=== PATIENT | male | born 1995 | race Caucasian/White ===

== ENCOUNTER → 2022-05-21 15:43 | Outpatient (CLI) | payer OTHER, SELFPAY ==
--- NOTE | 2022-05-21 15:52 | DI.RAD.S_ITS ---
PROCEDURE: XR HAND RT MIN 3V INDICATIONS: Right hand injury TECHNIQUE: 3 views of the hand(s) acquired. COMPARISON: None. FINDINGS: Bones: No fractures or dislocations. Carpal bones are normally aligned. No suspicious bony lesions. Suspect old healed 5th metacarpal fracture Soft tissues: No suspicious soft tissue calcifications. IMPRESSION: No acute osseous abnormalities. If clinical symptoms persist or clinical suspicion for pathology is high, a repeat examination in 7-10 days, or advanced imaging such as CT or MRI is suggested for further evaluation. Dictated by: Gio Cote M.D. on 05/21/2022 at 17:11 Approved by: Gio Cote M.D. on 05/21/2022 at 17:13
== END ==
PROVIDERS: Referring Provider Registered Nurse; Visit Provider Registered Nurse
DX: M79.641 Pain in right hand (principal)
CPT/HCPCS: 73130